=== PATIENT | male | born 2000 | race Caucasian/White ===

== ENCOUNTER → 2023-12-04 11:17 | Outpatient (BNVA) | payer OTHER, SELFPAY | PROVIDERS: PCP Pediatrics; Visit Provider Physician Assistant | DX: S81.812A Laceration without foreign body, left lower leg, initial encounter (principal); W26.9XXA Contact with unspecified sharp object(s), initial encounter; Z23 Encounter for immunization | CPT/HCPCS: 12002; 90715; 99203 ==

== ENCOUNTER → 2023-12-07 14:46 | Outpatient (BNVA) | payer OTHER, SELFPAY | PROVIDERS: PCP Pediatrics; Visit Provider Physician Assistant Medical | DX: Z48.02 Encounter for removal of sutures (principal); S81.812A Laceration without foreign body, left lower leg, initial encounter; W26.9XXA Contact with unspecified sharp object(s), initial encounter | CPT/HCPCS: 99213 ==

== ENCOUNTER → 2023-12-10 15:34 | Outpatient (BNVA) | payer OTHER, SELFPAY | PROVIDERS: PCP Pediatrics; Visit Provider Physician Assistant | DX: Z48.02 Encounter for removal of sutures (principal); S81.812A Laceration without foreign body, left lower leg, initial encounter; W26.9XXA Contact with unspecified sharp object(s), initial encounter | CPT/HCPCS: 99212; 99213 ==